=== PATIENT | male | born 1960 | race Caucasian/White ===

== ENCOUNTER 2021-11-20 04:50 | Inpatient (IN) | payer OTHER ==
[~2021-11-20] VITALS: Ht 175.3 cm; Wt 72.1 kg
[2021-11-20 15:40] VITALS: BP 140/80
[2021-11-20 16:00] VITALS: BP 140/80
[2021-11-20] MEDS ORDERED: ACETAMINOPHEN 325 MG TABLET PO PRN (18:15)
[2021-11-20] MEDS ORDERED: IPRATROPIUM BROMIDE 0.5 MG/2.5 ML NEB SOLUTION NEB PRN (18:45)
[2021-11-20] MEDS ORDERED: ALBUTEROL SULFATE 2.5 MG/0.5 ML NEB SOLUTION NEB PRN (18:45)
[2021-11-20] MEDS ORDERED: ONDANSETRON HCL 4 MG TABLET PO PRN (19:00)
[2021-11-20] MEDS ORDERED: LACTULOSE 20 GM/30 ML SOLUTION UDCUP PO PRN (19:00)
[2021-11-20] MEDS ORDERED: *NON-FORMULARY MED [ENTER DRUG, DOSE, FREQ IN COMMENTS] CLINICAL ONE (19:20)
[2021-11-20] MEDS: OXYGEN THERAPY IH SCH (20:53)
[2021-11-20] MEDS: BENZONATATE 100 MG CAPSULE PO SCH (20:54)
[2021-11-20] MEDS: CHLORHEXIDINE GLUCONATE 0.12% 15 ML UDCUP ORAL RINSE PO SCH (20:55)
[2021-11-20] MEDS: ROSUVASTATIN CALCIUM 20 MG TABLET PO SCH (20:55)
[2021-11-20] MEDS: APIXABAN 5 MG TABLET PO SCH (20:55)
[2021-11-20] MEDS: TICAGRELOR 90 MG TABLET PO SCH (20:55)
[2021-11-20] MEDS: ETHYL ALCOHOL 62% ANTISEPTIC NASAL INHALANT 0.6 ML AMPUL NASAL SCH (20:56)
[2021-11-20] MEDS ORDERED: DOCUSATE SODIUM 100 MG CAPSULE PO SCH (21:00)
[2021-11-20] MEDS ORDERED: SENNA 218 MG/5 ML LIQUID ORAL.SYG PO SCH (21:00)
[2021-11-20] MEDS: SENNA 187 MG TABLET PO SCH (21:02)
[2021-11-20] MEDS: DOCUSATE SODIUM 250 MG CAPSULE PO SCH (21:02)
[2021-11-20] MEDS: METOPROLOL TARTRATE 25 MG TABLET PO SCH (23:43)
[2021-11-21] VITALS (7 sets, daily range): BP systolic 118–140; BP diastolic 68–92
[2021-11-21] MEDS: METOPROLOL TARTRATE 25 MG TABLET PO SCH ×4 (06:21→23:09)
[2021-11-21] MEDS: PANTOPRAZOLE SODIUM 40 MG DR TABLET PO SCH (06:21)
[2021-11-21 06:47] LABS: BASOPHILS % (AUTO) 0.6 % (0.0-2.0); HEMATOCRIT 32.9 % (41-53); HEMOGLOBIN 10.9 g/dL (13.5-17.5); LYMPHOCYTES # (AUTO) 1.5 K/uL (1.0-4.8); LYMPHOCYTES % (AUTO) 20.4 % (22.0-44.0); MEAN CORPUSCULAR HEMOGLOBIN 28.3 pg (26.0-34.0); MEAN CORPUSCULAR HGB CONC 33.1 G/dL (31.0-37.0); MEAN CORPUSCULAR VOLUME 86 fL (80-100); MONOCYTES # (AUTO) 0.9 K/uL (0.1-1.0); MONOCYTES % (AUTO) 12.9 % (2.0-9.0); NEUTROPHILS # (AUTO) 4.2 K/uL (1.8-7.7); NEUTROPHILS % (AUTO) 58.1 % (40.0-70.0); PLATELET COUNT (AUTO) 435 K/uL (150-450); RED BLOOD CELL COUNT(AUTO) 3.85 MIL/uL (4.50-5.90)
[2021-11-21 07:14] LABS: ALANINE AMINOTRANSFERASE 60 U/L (12-78); ALBUMIN 3.1 g/dL (3.4-5.0); ALKALINE PHOSPHATASE 69 U/L (46-116); ANION GAP 6 mmol/L (8-16); ASPARTATE AMINOTRANSFERASE 27 U/L (15-37); BILIRUBIN,TOTAL 0.2 mg/dL (0.1-1.0); CALCIUM, TOTAL 9.4 mg/dL (8.8-10.5); CARBON DIOXIDE 33 mmol/L (22-29); CHLORIDE 102 mmol/L (98-107); GLOMERULAR FILTR. RATE CALC > 60 mL/min (>60); GLUCOSE,RANDOM 100 mg/dL (70-110); POTASSIUM 4.1 mmol/L (3.5-5.1); SODIUM SERUM 141 mmol/L (136-145); TOTAL PROTEIN, SERUM 7.1 g/dL (6.4-8.2); UREA NITROGEN, BLOOD 8 mg/dL (7-18)
[2021-11-21] MEDS: OXYGEN THERAPY IH SCH ×2 (08:00→20:43)
[2021-11-21] MEDS: CHLORHEXIDINE GLUCONATE 0.12% 15 ML UDCUP ORAL RINSE PO SCH ×2 (09:53→20:37)
[2021-11-21] MEDS: MULTIVITAMINS WITH MINERALS, THERAPEUTIC TABLET PO SCH (09:54)
[2021-11-21] MEDS: TICAGRELOR 90 MG TABLET PO SCH ×2 (09:54→20:36)
[2021-11-21] MEDS: APIXABAN 5 MG TABLET PO SCH ×2 (09:54→20:37)
[2021-11-21] MEDS: ETHYL ALCOHOL 62% ANTISEPTIC NASAL INHALANT 0.6 ML AMPUL NASAL SCH ×2 (09:54→20:36)
[2021-11-21] MEDS: BENZONATATE 100 MG CAPSULE PO SCH ×2 (09:54→20:36)
[2021-11-21] MEDS: CHOLECALCIFEROL (VIT D3) 5,000 [125 MCG] UNITS CAPSULE PO SCH (09:54)
[2021-11-21] MEDS: DOCUSATE SODIUM 250 MG CAPSULE PO SCH ×2 (09:54→20:36)
[2021-11-21] MEDS ORDERED: SODIUM CHLORIDE 0.9% 100 ML ONE (15:11)
[2021-11-21] MEDS: DEXTROSE 5% IV SCH (15:55)
[2021-11-21] MEDS: WATER IV SCH (15:55)
[2021-11-21] MEDS: ANIDULAFUNGIN IV SCH (15:55)
[2021-11-21] MEDS: ROSUVASTATIN CALCIUM 20 MG TABLET PO SCH (20:36)
[2021-11-21] MEDS: SENNA 187 MG TABLET PO SCH (20:36)
[2021-11-21] MEDS: HYDROCODONE/CHLORPHEN POLIS 10-8 MG/5 ML ORAL.SYG PO SCH (20:37)
[2021-11-21] MEDS: 0.9% SODIUM CHLORIDE 10 ML SYRINGE IVP SCH (23:09)
[2021-11-22] MEDS: PANTOPRAZOLE SODIUM 40 MG DR TABLET PO SCH (06:03)
[2021-11-22] MEDS: METOPROLOL TARTRATE 25 MG TABLET PO SCH ×4 (06:03→23:17)
[2021-11-22] MEDS: DOCUSATE SODIUM 250 MG CAPSULE PO SCH ×2 (08:53→21:56)
[2021-11-22] MEDS: CHLORHEXIDINE GLUCONATE 0.12% 15 ML UDCUP ORAL RINSE PO SCH ×2 (08:53→21:48)
[2021-11-22] MEDS: CHOLECALCIFEROL (VIT D3) 5,000 [125 MCG] UNITS CAPSULE PO SCH (08:54)
[2021-11-22] MEDS: ETHYL ALCOHOL 62% ANTISEPTIC NASAL INHALANT 0.6 ML AMPUL NASAL SCH ×2 (08:54→21:48)
[2021-11-22] MEDS: APIXABAN 5 MG TABLET PO SCH ×2 (08:54→21:48)
[2021-11-22] MEDS: TICAGRELOR 90 MG TABLET PO SCH ×2 (08:54→21:48)
[2021-11-22] MEDS: MULTIVITAMINS WITH MINERALS, THERAPEUTIC TABLET PO SCH (08:54)
[2021-11-22] MEDS: BENZONATATE 100 MG CAPSULE PO SCH ×2 (08:54→21:48)
[2021-11-22 09:00] VITALS: BP 117/79
[2021-11-22] MEDS: 0.9% SODIUM CHLORIDE 10 ML SYRINGE IVP SCH ×3 (09:03→23:17)
[2021-11-22] MEDS: OXYGEN THERAPY IH SCH ×2 (09:10→21:56)
[2021-11-22 12:30] VITALS: BP 131/80
[2021-11-22 15:30] VITALS: BP 129/87
[2021-11-22] MEDS: WATER IV SCH (16:40)
[2021-11-22] MEDS: ANIDULAFUNGIN IV SCH (16:40)
[2021-11-22] MEDS: DEXTROSE 5% IV SCH (16:40)
[2021-11-22 18:55] VITALS: BP 132/68
[2021-11-22] MEDS: ROSUVASTATIN CALCIUM 20 MG TABLET PO SCH (21:48)
[2021-11-22] MEDS: SENNA 187 MG TABLET PO SCH (21:48)
[2021-11-22] MEDS: HYDROCODONE/CHLORPHEN POLIS 10-8 MG/5 ML ORAL.SYG PO SCH (22:33)
[2021-11-23] VITALS: BP 130/94
[2021-11-23 06:00] VITALS: BP 117/81
[2021-11-23] MEDS: PANTOPRAZOLE SODIUM 40 MG DR TABLET PO SCH (06:07)
[2021-11-23] MEDS: METOPROLOL TARTRATE 25 MG TABLET PO SCH ×3 (06:07→22:09)
[2021-11-23 08:10] VITALS: BP 126/74
[2021-11-23] MEDS: OXYGEN THERAPY IH SCH ×2 (08:34→22:24)
[2021-11-23] MEDS: APIXABAN 5 MG TABLET PO SCH ×2 (08:35→22:09)
[2021-11-23] MEDS: BENZONATATE 100 MG CAPSULE PO SCH ×3 (08:35→22:09)
[2021-11-23] MEDS: CHOLECALCIFEROL (VIT D3) 5,000 [125 MCG] UNITS CAPSULE PO SCH (08:35)
[2021-11-23] MEDS: 0.9% SODIUM CHLORIDE 10 ML SYRINGE IVP SCH ×2 (08:35→16:46)
[2021-11-23] MEDS: MULTIVITAMINS WITH MINERALS, THERAPEUTIC TABLET PO SCH (08:35)
[2021-11-23] MEDS: DOCUSATE SODIUM 250 MG CAPSULE PO SCH ×2 (08:35→22:09)
[2021-11-23] MEDS: ETHYL ALCOHOL 62% ANTISEPTIC NASAL INHALANT 0.6 ML AMPUL NASAL SCH ×2 (08:36→22:09)
[2021-11-23] MEDS: CHLORHEXIDINE GLUCONATE 0.12% 15 ML UDCUP ORAL RINSE PO SCH ×2 (08:36→22:14)
[2021-11-23] MEDS: TICAGRELOR 90 MG TABLET PO SCH ×2 (08:36→22:13)
[2021-11-23 15:30] VITALS: BP 112/76
[2021-11-23] MEDS: DEXTROSE 5% IV SCH (16:45)
[2021-11-23] MEDS: ANIDULAFUNGIN IV SCH (16:45)
[2021-11-23] MEDS: WATER IV SCH (16:45)
[2021-11-23] MEDS: SENNA 187 MG TABLET PO SCH (22:09)
[2021-11-23] MEDS: HYDROCODONE/CHLORPHEN POLIS 10-8 MG/5 ML ORAL.SYG PO SCH ×2 (22:10→23:48)
[2021-11-23] MEDS: ROSUVASTATIN CALCIUM 20 MG TABLET PO SCH (22:12)
[2021-11-23 22:16] VITALS: BP 137/74
[2021-11-24 00:01] VITALS: BP 120/92
[2021-11-24] MEDS: 0.9% SODIUM CHLORIDE 10 ML SYRINGE IVP SCH ×4 (00:45→22:53)
[2021-11-24] MEDS: METOPROLOL TARTRATE 25 MG TABLET PO SCH ×5 (06:26→22:53)
[2021-11-24] MEDS: PANTOPRAZOLE SODIUM 40 MG DR TABLET PO SCH (06:27)
[2021-11-24 08:11] VITALS: BP 129/82
[2021-11-24] MEDS: BENZONATATE 100 MG CAPSULE PO SCH ×2 (09:00→21:00)
[2021-11-24] MEDS: CHOLECALCIFEROL (VIT D3) 5,000 [125 MCG] UNITS CAPSULE PO SCH (09:24)
[2021-11-24] MEDS: MULTIVITAMINS WITH MINERALS, THERAPEUTIC TABLET PO SCH (09:24)
[2021-11-24] MEDS: CHLORHEXIDINE GLUCONATE 0.12% 15 ML UDCUP ORAL RINSE PO SCH ×2 (09:24→21:49)
[2021-11-24] MEDS: APIXABAN 5 MG TABLET PO SCH ×2 (09:24→21:57)
[2021-11-24] MEDS: DOCUSATE SODIUM 250 MG CAPSULE PO SCH ×2 (09:24→21:58)
[2021-11-24] MEDS: ETHYL ALCOHOL 62% ANTISEPTIC NASAL INHALANT 0.6 ML AMPUL NASAL SCH ×2 (09:25→21:48)
[2021-11-24] MEDS: TICAGRELOR 90 MG TABLET PO SCH ×2 (09:25→21:47)
[2021-11-24] MEDS: OXYGEN THERAPY IH SCH ×2 (09:32→21:48)
[2021-11-24 12:35] VITALS: BP 128/81
[2021-11-24] MEDS: DEXTROSE 5% IV SCH (15:50)
[2021-11-24] MEDS: WATER IV SCH (15:50)
[2021-11-24] MEDS: MAGNESIUM HYDROXIDE SUSPENSION 30 ML UDCUP PO SCH (15:50)
[2021-11-24] MEDS: ANIDULAFUNGIN IV SCH (15:50)
[2021-11-24 16:00] VITALS: BP 140/84
[2021-11-24] MEDS ORDERED: DOCUSATE SODIUM 283 MG/5 ML MINI-ENEMA PR PRN (17:00)
[2021-11-24 17:27] VITALS: BP 124/70
[2021-11-24] MEDS: ROSUVASTATIN CALCIUM 20 MG TABLET PO SCH (21:48)
[2021-11-24] MEDS: SENNA 187 MG TABLET PO SCH (21:58)
[2021-11-24] MEDS: HYDROCODONE/CHLORPHEN POLIS 10-8 MG/5 ML ORAL.SYG PO SCH (22:52)
[2021-11-24 23:00] VITALS: BP 134/91
[2021-11-25 05:18] VITALS: BP 116/73
[2021-11-25] MEDS: METOPROLOL TARTRATE 25 MG TABLET PO SCH ×4 (05:18→23:12)
[2021-11-25] MEDS: PANTOPRAZOLE SODIUM 40 MG DR TABLET PO SCH (05:18)
[2021-11-25] MEDS ORDERED: [UNRECOGNIZED DRUG - CODE] IV (06:59)
[2021-11-25] MEDS ORDERED: APIX5TAB PO (06:59)
[2021-11-25] MEDS ORDERED: CHOL500062 PO (06:59)
[2021-11-25] MEDS: CHLORHEXIDINE GLUCONATE 0.12% 15 ML UDCUP ORAL RINSE PO SCH ×2 (08:47→20:29)
[2021-11-25] MEDS: ETHYL ALCOHOL 62% ANTISEPTIC NASAL INHALANT 0.6 ML AMPUL NASAL SCH ×2 (08:47→20:30)
[2021-11-25] MEDS: BENZONATATE 100 MG CAPSULE PO SCH ×2 (08:47→20:30)
[2021-11-25] MEDS: CHOLECALCIFEROL (VIT D3) 5,000 [125 MCG] UNITS CAPSULE PO SCH (08:47)
[2021-11-25] MEDS: 0.9% SODIUM CHLORIDE 10 ML SYRINGE IVP SCH ×3 (08:48→23:22)
[2021-11-25] MEDS: TICAGRELOR 90 MG TABLET PO SCH ×2 (08:48→20:29)
[2021-11-25] MEDS: DOCUSATE SODIUM 250 MG CAPSULE PO SCH ×2 (08:48→20:30)
[2021-11-25] MEDS: OXYGEN THERAPY IH SCH ×2 (08:48→20:31)
[2021-11-25] MEDS: APIXABAN 5 MG TABLET PO SCH ×2 (08:48→20:30)
[2021-11-25] MEDS: MULTIVITAMINS WITH MINERALS, THERAPEUTIC TABLET PO SCH (08:48)
[2021-11-25 10:03] VITALS: BP 120/75
[2021-11-25] MEDS ORDERED: SODIUM CHLORIDE 0.9% 100 ML ONE (15:35)
[2021-11-25] MEDS: WATER IV SCH (15:52)
[2021-11-25] MEDS: ANIDULAFUNGIN IV SCH (15:52)
[2021-11-25] MEDS: DEXTROSE 5% IV SCH (15:52)
[2021-11-25 16:00] VITALS: BP 123/65
[2021-11-25 17:26] VITALS: BP 142/82
[2021-11-25] MEDS: ROSUVASTATIN CALCIUM 20 MG TABLET PO SCH (20:29)
[2021-11-25] MEDS: SENNA 187 MG TABLET PO SCH (20:30)
[2021-11-25 23:12] VITALS: BP 156/88
[2021-11-25] MEDS: HYDROCODONE/CHLORPHEN POLIS 10-8 MG/5 ML ORAL.SYG PO SCH (23:12)
[2021-11-26] MEDS ORDERED: MULT-1133 PO (03:27)
[2021-11-26] MEDS ORDERED: DOCU-350 PO (03:27)
[2021-11-26] MEDS ORDERED: ROSU20TA73 PO (03:27)
[2021-11-26] MEDS ORDERED: PANT-31 PO (03:27)
[2021-11-26] MEDS ORDERED: TICA90TA PO (03:27)
[2021-11-26] MEDS ORDERED: METO25 PO (03:27)
[2021-11-26] MEDS ORDERED: SENN8.6T90 PO ×2 (03:27)
[2021-11-26] MEDS: METOPROLOL TARTRATE 25 MG TABLET PO SCH ×4 (06:11→22:58)
[2021-11-26] MEDS: PANTOPRAZOLE SODIUM 40 MG DR TABLET PO SCH (06:11)
[2021-11-26 06:15] VITALS: BP 117/76
[2021-11-26] MEDS: CHLORHEXIDINE GLUCONATE 0.12% 15 ML UDCUP ORAL RINSE PO SCH ×2 (08:43→21:27)
[2021-11-26] MEDS: 0.9% SODIUM CHLORIDE 10 ML SYRINGE IVP SCH ×3 (08:43→22:58)
[2021-11-26] MEDS: MAGNESIUM HYDROXIDE SUSPENSION 30 ML UDCUP PO SCH (08:43)
[2021-11-26] MEDS: OXYGEN THERAPY IH SCH ×2 (08:43→21:26)
[2021-11-26] MEDS: DOCUSATE SODIUM 250 MG CAPSULE PO SCH ×2 (08:44→21:41)
[2021-11-26] MEDS: ETHYL ALCOHOL 62% ANTISEPTIC NASAL INHALANT 0.6 ML AMPUL NASAL SCH ×2 (08:44→21:26)
[2021-11-26] MEDS: CHOLECALCIFEROL (VIT D3) 5,000 [125 MCG] UNITS CAPSULE PO SCH (08:44)
[2021-11-26] MEDS: APIXABAN 5 MG TABLET PO SCH ×2 (08:44→21:27)
[2021-11-26] MEDS: TICAGRELOR 90 MG TABLET PO SCH ×2 (08:44→21:27)
[2021-11-26] MEDS: BENZONATATE 100 MG CAPSULE PO SCH ×2 (08:44→21:00)
[2021-11-26] MEDS: MULTIVITAMINS WITH MINERALS, THERAPEUTIC TABLET PO SCH (08:44)
[2021-11-26 08:49] LABS: BASOPHILS % (AUTO) 0.7 % (0.0-2.0); EOSINOPHILS % (AUTO) 11.6 % (1.0-6.0); HEMATOCRIT 32.6 % (41-53); HEMOGLOBIN 10.9 g/dL (13.5-17.5); LYMPHOCYTES # (AUTO) 1.4 K/uL (1.0-4.8); LYMPHOCYTES % (AUTO) 22.8 % (22.0-44.0); MEAN CORPUSCULAR HEMOGLOBIN 28.7 pg (26.0-34.0); MEAN CORPUSCULAR HGB CONC 33.5 G/dL (31.0-37.0); MEAN CORPUSCULAR VOLUME 86 fL (80-100); MONOCYTES # (AUTO) 0.7 K/uL (0.1-1.0); MONOCYTES % (AUTO) 11.6 % (2.0-9.0); NEUTROPHILS # (AUTO) 3.3 K/uL (1.8-7.7); NEUTROPHILS % (AUTO) 53.3 % (40.0-70.0); PLATELET COUNT (AUTO) 363 K/uL (150-450); RED BLOOD CELL COUNT(AUTO) 3.81 MIL/uL (4.50-5.90); RED CELL DISTRIBUTION WIDTH 15.2 % (11.5-14.5)
[2021-11-26 08:56] LABS: ANION GAP 3 mmol/L (8-16); CALCIUM, TOTAL 9.4 mg/dL (8.8-10.5); CARBON DIOXIDE 33 mmol/L (22-29); CHLORIDE 102 mmol/L (98-107); CREATININE 0.67 mg/dL (0.60-1.30); GLOMERULAR FILTR. RATE CALC > 60 mL/min (>60); GLUCOSE,RANDOM 140 mg/dL (70-110); POTASSIUM 4.2 mmol/L (3.5-5.1); SODIUM SERUM 138 mmol/L (136-145); UREA NITROGEN, BLOOD 10 mg/dL (7-18)
[2021-11-26 09:51] VITALS: BP 119/75
[2021-11-26] MEDS: DEXTROSE 5% IV SCH (16:07)
[2021-11-26] MEDS: WATER IV SCH (16:07)
[2021-11-26] MEDS: ANIDULAFUNGIN IV SCH (16:07)
[2021-11-26 16:24] VITALS: BP 120/75
[2021-11-26] MEDS: SENNA 187 MG TABLET PO SCH (21:27)
[2021-11-26] MEDS: ROSUVASTATIN CALCIUM 20 MG TABLET PO SCH (21:27)
[2021-11-26] MEDS: MUPIROCIN CALCIUM 2% 22 GM OINTMENT NASAL SCH (21:29)
[2021-11-26] MEDS: HYDROCODONE/CHLORPHEN POLIS 10-8 MG/5 ML ORAL.SYG PO SCH (22:58)
[2021-11-26 23:13] VITALS: BP 141/82
[2021-11-27 06:10] VITALS: BP 116/73
[2021-11-27] MEDS: METOPROLOL TARTRATE 25 MG TABLET PO SCH ×4 (06:10→23:23)
[2021-11-27] MEDS: PANTOPRAZOLE SODIUM 40 MG DR TABLET PO SCH (06:10)
[2021-11-27] MEDS: 0.9% SODIUM CHLORIDE 10 ML SYRINGE IVP SCH ×3 (08:59→23:23)
[2021-11-27] MEDS: ETHYL ALCOHOL 62% ANTISEPTIC NASAL INHALANT 0.6 ML AMPUL NASAL SCH ×2 (08:59→20:51)
[2021-11-27] MEDS: MUPIROCIN CALCIUM 2% 22 GM OINTMENT NASAL SCH ×2 (08:59→20:51)
[2021-11-27] MEDS: CHOLECALCIFEROL (VIT D3) 5,000 [125 MCG] UNITS CAPSULE PO SCH (08:59)
[2021-11-27] MEDS: OXYGEN THERAPY IH SCH ×2 (08:59→20:50)
[2021-11-27] MEDS: TICAGRELOR 90 MG TABLET PO SCH ×2 (09:00→20:53)
[2021-11-27] MEDS: MULTIVITAMINS WITH MINERALS, THERAPEUTIC TABLET PO SCH (09:00)
[2021-11-27] MEDS: DOCUSATE SODIUM 250 MG CAPSULE PO SCH ×2 (09:00→20:52)
[2021-11-27] MEDS: CHLORHEXIDINE GLUCONATE 0.12% 15 ML UDCUP ORAL RINSE PO SCH ×2 (09:00→20:52)
[2021-11-27] MEDS: APIXABAN 5 MG TABLET PO SCH ×2 (09:00→20:52)
[2021-11-27] MEDS: BENZONATATE 100 MG CAPSULE PO SCH ×2 (09:00→20:55)
[2021-11-27 10:00] VITALS: BP 110/79
[2021-11-27 12:50] VITALS: BP 115/74
[2021-11-27 15:45] VITALS: BP 128/76
[2021-11-27] MEDS: WATER IV SCH (16:41)
[2021-11-27] MEDS: ANIDULAFUNGIN IV SCH (16:41)
[2021-11-27] MEDS: DEXTROSE 5% IV SCH (16:41)
[2021-11-27 18:26] VITALS: BP 130/84
[2021-11-27] MEDS: ROSUVASTATIN CALCIUM 20 MG TABLET PO SCH (20:52)
[2021-11-27] MEDS: SENNA 187 MG TABLET PO SCH (20:52)
[2021-11-27] MEDS: MUPIROCIN CALCIUM 2% 22 GM OINTMENT TP SCH (20:53)
[2021-11-27] MEDS: HYDROCODONE/CHLORPHEN POLIS 10-8 MG/5 ML ORAL.SYG PO SCH (23:23)
[2021-11-28] VITALS: BP 136/77
[2021-11-28 06:15] VITALS: BP 116/72
[2021-11-28] MEDS: PANTOPRAZOLE SODIUM 40 MG DR TABLET PO SCH (06:16)
[2021-11-28] MEDS: METOPROLOL TARTRATE 25 MG TABLET PO SCH ×4 (06:16→23:37)
[2021-11-28] MEDS: OXYGEN THERAPY IH SCH ×2 (08:18→20:28)
[2021-11-28] MEDS: 0.9% SODIUM CHLORIDE 10 ML SYRINGE IVP SCH ×3 (08:18→23:37)
[2021-11-28] MEDS: ETHYL ALCOHOL 62% ANTISEPTIC NASAL INHALANT 0.6 ML AMPUL NASAL SCH ×2 (08:18→20:29)
[2021-11-28] MEDS: MUPIROCIN CALCIUM 2% 22 GM OINTMENT NASAL SCH ×2 (08:19→20:30)
[2021-11-28] MEDS: CHLORHEXIDINE GLUCONATE 0.12% 15 ML UDCUP ORAL RINSE PO SCH ×2 (08:19→20:28)
[2021-11-28] MEDS: MAGNESIUM HYDROXIDE SUSPENSION 30 ML UDCUP PO SCH (08:19)
[2021-11-28] MEDS: DOCUSATE SODIUM 250 MG CAPSULE PO SCH ×2 (08:20→20:30)
[2021-11-28] MEDS: MUPIROCIN CALCIUM 2% 22 GM OINTMENT TP SCH ×2 (08:20→20:30)
[2021-11-28] MEDS: CHOLECALCIFEROL (VIT D3) 5,000 [125 MCG] UNITS CAPSULE PO SCH (08:20)
[2021-11-28] MEDS: MULTIVITAMINS WITH MINERALS, THERAPEUTIC TABLET PO SCH (08:20)
[2021-11-28] MEDS: TICAGRELOR 90 MG TABLET PO SCH ×2 (08:20→20:29)
[2021-11-28] MEDS: APIXABAN 5 MG TABLET PO SCH ×2 (08:21→20:29)
[2021-11-28] MEDS: BENZONATATE 100 MG CAPSULE PO SCH ×2 (08:21→20:30)
[2021-11-28 10:00] VITALS: BP 128/81
[2021-11-28 15:09] VITALS: BP 118/75
[2021-11-28] MEDS: WATER IV SCH (15:57)
[2021-11-28] MEDS: DEXTROSE 5% IV SCH (15:57)
[2021-11-28] MEDS: ANIDULAFUNGIN IV SCH (15:57)
[2021-11-28 17:49] VITALS: BP 126/72
[2021-11-28] MEDS: ROSUVASTATIN CALCIUM 20 MG TABLET PO SCH (20:29)
[2021-11-28] MEDS: SENNA 187 MG TABLET PO SCH (20:30)
[2021-11-28] MEDS: HYDROCODONE/CHLORPHEN POLIS 10-8 MG/5 ML ORAL.SYG PO SCH (23:36)
[2021-11-29] VITALS: BP 135/76
[2021-11-29 06:25] VITALS: BP 117/77
[2021-11-29] MEDS: METOPROLOL TARTRATE 25 MG TABLET PO SCH ×4 (06:28→23:21)
[2021-11-29] MEDS: PANTOPRAZOLE SODIUM 40 MG DR TABLET PO SCH (06:28)
[2021-11-29] MEDS: OXYGEN THERAPY IH SCH ×2 (08:41→20:45)
[2021-11-29] MEDS: 0.9% SODIUM CHLORIDE 10 ML SYRINGE IVP SCH ×3 (08:41→23:21)
[2021-11-29] MEDS: TICAGRELOR 90 MG TABLET PO SCH ×2 (08:42→20:46)
[2021-11-29] MEDS: MULTIVITAMINS WITH MINERALS, THERAPEUTIC TABLET PO SCH (08:42)
[2021-11-29] MEDS: MUPIROCIN CALCIUM 2% 22 GM OINTMENT NASAL SCH ×2 (08:42→20:49)
[2021-11-29] MEDS: DOCUSATE SODIUM 250 MG CAPSULE PO SCH ×2 (08:42→20:46)
[2021-11-29] MEDS: CHOLECALCIFEROL (VIT D3) 5,000 [125 MCG] UNITS CAPSULE PO SCH (08:42)
[2021-11-29] MEDS: APIXABAN 5 MG TABLET PO SCH ×2 (08:42→20:46)
[2021-11-29] MEDS: ETHYL ALCOHOL 62% ANTISEPTIC NASAL INHALANT 0.6 ML AMPUL NASAL SCH ×2 (08:42→20:46)
[2021-11-29] MEDS: BENZONATATE 100 MG CAPSULE PO SCH ×2 (08:43→21:00)
[2021-11-29] MEDS: CHLORHEXIDINE GLUCONATE 0.12% 15 ML UDCUP ORAL RINSE PO SCH ×2 (08:43→20:45)
[2021-11-29] MEDS: MUPIROCIN CALCIUM 2% 22 GM OINTMENT TP SCH ×2 (08:43→20:49)
[2021-11-29 10:39] VITALS: BP 121/73
[2021-11-29] MEDS: WATER IV SCH (15:17)
[2021-11-29] MEDS: ANIDULAFUNGIN IV SCH (15:17)
[2021-11-29] MEDS: DEXTROSE 5% IV SCH (15:17)
[2021-11-29 17:23] VITALS: BP 129/87
[2021-11-29] MEDS: SENNA 187 MG TABLET PO SCH (20:46)
[2021-11-29] MEDS: ROSUVASTATIN CALCIUM 20 MG TABLET PO SCH (20:46)
[2021-11-29] MEDS: HYDROCODONE/CHLORPHEN POLIS 10-8 MG/5 ML ORAL.SYG PO SCH (23:20)
[2021-11-30 03:44] VITALS: BP 133/87
[2021-11-30] MEDS: PANTOPRAZOLE SODIUM 40 MG DR TABLET PO SCH (06:29)
[2021-11-30] MEDS: METOPROLOL TARTRATE 25 MG TABLET PO SCH ×4 (06:29→23:43)
[2021-11-30] MEDS: MAGNESIUM HYDROXIDE SUSPENSION 30 ML UDCUP PO SCH (08:07)
[2021-11-30] MEDS: 0.9% SODIUM CHLORIDE 10 ML SYRINGE IVP SCH ×3 (08:07→23:51)
[2021-11-30] MEDS: CHLORHEXIDINE GLUCONATE 0.12% 15 ML UDCUP ORAL RINSE PO SCH ×2 (08:07→21:01)
[2021-11-30] MEDS: CHOLECALCIFEROL (VIT D3) 5,000 [125 MCG] UNITS CAPSULE PO SCH (08:07)
[2021-11-30] MEDS: OXYGEN THERAPY IH SCH ×2 (08:07→21:02)
[2021-11-30] MEDS: ETHYL ALCOHOL 62% ANTISEPTIC NASAL INHALANT 0.6 ML AMPUL NASAL SCH ×2 (08:07→21:02)
[2021-11-30] MEDS: MULTIVITAMINS WITH MINERALS, THERAPEUTIC TABLET PO SCH (08:08)
[2021-11-30] MEDS: DOCUSATE SODIUM 250 MG CAPSULE PO SCH ×2 (08:08→21:01)
[2021-11-30] MEDS: TICAGRELOR 90 MG TABLET PO SCH ×2 (08:08→21:01)
[2021-11-30] MEDS: APIXABAN 5 MG TABLET PO SCH ×2 (08:08→21:03)
[2021-11-30] MEDS: BENZONATATE 100 MG CAPSULE PO SCH (08:09)
[2021-11-30] MEDS: MUPIROCIN CALCIUM 2% 22 GM OINTMENT NASAL SCH ×2 (08:09→21:02)
[2021-11-30] MEDS: MUPIROCIN CALCIUM 2% 22 GM OINTMENT TP SCH ×2 (08:09→21:02)
[2021-11-30 10:02] VITALS: BP 129/85
[2021-11-30 16:05] VITALS: BP 130/82
[2021-11-30] MEDS: DEXTROSE 5% IV SCH (16:14)
[2021-11-30] MEDS: WATER IV SCH (16:14)
[2021-11-30] MEDS: ANIDULAFUNGIN IV SCH (16:14)
[2021-11-30 17:30] VITALS: BP 124/78
[2021-11-30] MEDS ORDERED: BISACODYL 10 MG RECTAL RECTAL SUPPOSITORY PR PRN (19:15)
[2021-11-30] MEDS: SENNA 187 MG TABLET PO SCH (21:01)
[2021-11-30] MEDS: ROSUVASTATIN CALCIUM 20 MG TABLET PO SCH (21:02)
[2021-11-30] MEDS: HYDROCODONE/CHLORPHEN POLIS 10-8 MG/5 ML ORAL.SYG PO SCH (23:43)
[2021-12-01] VITALS: BP 141/90
[2021-12-01 06:00] VITALS: BP 116/75
[2021-12-01] MEDS: PANTOPRAZOLE SODIUM 40 MG DR TABLET PO SCH (06:16)
[2021-12-01] MEDS: METOPROLOL TARTRATE 25 MG TABLET PO SCH ×4 (06:16→23:12)
[2021-12-01] MEDS: 0.9% SODIUM CHLORIDE 10 ML SYRINGE IVP SCH ×3 (08:11→23:07)
[2021-12-01] MEDS: OXYGEN THERAPY IH SCH ×2 (08:11→21:20)
[2021-12-01] MEDS: MULTIVITAMINS WITH MINERALS, THERAPEUTIC TABLET PO SCH (08:12)
[2021-12-01] MEDS: DOCUSATE SODIUM 250 MG CAPSULE PO SCH ×2 (08:12→21:19)
[2021-12-01] MEDS: APIXABAN 5 MG TABLET PO SCH ×2 (08:12→21:19)
[2021-12-01] MEDS: CHOLECALCIFEROL (VIT D3) 5,000 [125 MCG] UNITS CAPSULE PO SCH (08:12)
[2021-12-01] MEDS: CHLORHEXIDINE GLUCONATE 0.12% 15 ML UDCUP ORAL RINSE PO SCH ×2 (08:12→21:19)
[2021-12-01] MEDS: TICAGRELOR 90 MG TABLET PO SCH ×2 (08:12→21:19)
[2021-12-01] MEDS: MUPIROCIN CALCIUM 2% 22 GM OINTMENT NASAL SCH (08:13)
[2021-12-01] MEDS: ETHYL ALCOHOL 62% ANTISEPTIC NASAL INHALANT 0.6 ML AMPUL NASAL SCH ×2 (08:13→21:20)
[2021-12-01] MEDS: MUPIROCIN CALCIUM 2% 22 GM OINTMENT TP SCH ×2 (08:13→21:19)
[2021-12-01 10:54] VITALS: BP 123/73
[2021-12-01] MEDS: POLYETHYLENE GLYCOL 3350 17 GM PACKET PO SCH (12:38)
[2021-12-01 15:39] VITALS: BP 121/78
[2021-12-01] MEDS: WATER IV SCH (16:37)
[2021-12-01] MEDS: DEXTROSE 5% IV SCH (16:37)
[2021-12-01] MEDS: ANIDULAFUNGIN IV SCH (16:37)
[2021-12-01 18:30] VITALS: BP 134/80
[2021-12-01] MEDS: ROSUVASTATIN CALCIUM 20 MG TABLET PO SCH (21:19)
[2021-12-01] MEDS: SENNA 187 MG TABLET PO SCH (21:19)
[2021-12-01 23:00] VITALS: BP 134/90
[2021-12-01] MEDS: HYDROCODONE/CHLORPHEN POLIS 10-8 MG/5 ML ORAL.SYG PO SCH (23:10)
[2021-12-02 05:30] VITALS: BP 116/69
[2021-12-02] MEDS: PANTOPRAZOLE SODIUM 40 MG DR TABLET PO SCH (05:30)
[2021-12-02] MEDS: METOPROLOL TARTRATE 25 MG TABLET PO SCH ×4 (05:30→23:24)
[2021-12-02] MEDS: 0.9% SODIUM CHLORIDE 10 ML SYRINGE IVP SCH ×3 (09:49→23:23)
[2021-12-02] MEDS: OXYGEN THERAPY IH SCH ×2 (09:49→20:17)
[2021-12-02] MEDS: ETHYL ALCOHOL 62% ANTISEPTIC NASAL INHALANT 0.6 ML AMPUL NASAL SCH ×2 (09:49→20:18)
[2021-12-02] MEDS: MAGNESIUM HYDROXIDE SUSPENSION 30 ML UDCUP PO SCH (09:50)
[2021-12-02] MEDS: POLYETHYLENE GLYCOL 3350 17 GM PACKET PO SCH (09:50)
[2021-12-02] MEDS: GuaiFENesin/CODEINE [SUGAR FREE] 200-20MG/10 ML SYRUP UDCUP PO PRN (09:50)
[2021-12-02] MEDS: MULTIVITAMINS WITH MINERALS, THERAPEUTIC TABLET PO SCH (09:51)
[2021-12-02] MEDS: TICAGRELOR 90 MG TABLET PO SCH ×2 (09:51→20:18)
[2021-12-02] MEDS: CHLORHEXIDINE GLUCONATE 0.12% 15 ML UDCUP ORAL RINSE PO SCH ×2 (09:51→20:18)
[2021-12-02] MEDS: DOCUSATE SODIUM 250 MG CAPSULE PO SCH ×2 (09:51→20:18)
[2021-12-02] MEDS: CHOLECALCIFEROL (VIT D3) 5,000 [125 MCG] UNITS CAPSULE PO SCH (09:51)
[2021-12-02] MEDS: APIXABAN 5 MG TABLET PO SCH ×2 (09:51→20:19)
[2021-12-02] MEDS: MUPIROCIN CALCIUM 2% 22 GM OINTMENT TP SCH ×2 (09:52→20:20)
[2021-12-02 11:34] VITALS: BP 136/87
[2021-12-02] MEDS: DEXTROSE 5% IV SCH (16:49)
[2021-12-02] MEDS: WATER IV SCH (16:49)
[2021-12-02] MEDS: ANIDULAFUNGIN IV SCH (16:49)
[2021-12-02 17:41] VITALS: BP 114/73
[2021-12-02] MEDS: ROSUVASTATIN CALCIUM 20 MG TABLET PO SCH (20:18)
[2021-12-02] MEDS: SENNA 187 MG TABLET PO SCH (20:18)
[2021-12-02 23:15] VITALS: BP 134/85
[2021-12-02] MEDS: HYDROCODONE/CHLORPHEN POLIS 10-8 MG/5 ML ORAL.SYG PO SCH (23:23)
[2021-12-03 06:05] VITALS: BP 118/74
[2021-12-03] MEDS: PANTOPRAZOLE SODIUM 40 MG DR TABLET PO SCH (06:08)
[2021-12-03] MEDS: METOPROLOL TARTRATE 25 MG TABLET PO SCH ×4 (06:08→23:06)
[2021-12-03] MEDS: ETHYL ALCOHOL 62% ANTISEPTIC NASAL INHALANT 0.6 ML AMPUL NASAL SCH ×2 (07:56→20:13)
[2021-12-03] MEDS: MULTIVITAMINS WITH MINERALS, THERAPEUTIC TABLET PO SCH (07:56)
[2021-12-03] MEDS: APIXABAN 5 MG TABLET PO SCH ×2 (07:56→20:13)
[2021-12-03] MEDS: TICAGRELOR 90 MG TABLET PO SCH ×2 (07:56→20:13)
[2021-12-03] MEDS: CHLORHEXIDINE GLUCONATE 0.12% 15 ML UDCUP ORAL RINSE PO SCH ×2 (07:56→20:13)
[2021-12-03] MEDS: CHOLECALCIFEROL (VIT D3) 5,000 [125 MCG] UNITS CAPSULE PO SCH (07:56)
[2021-12-03] MEDS: DOCUSATE SODIUM 250 MG CAPSULE PO SCH ×2 (07:56→20:38)
[2021-12-03] MEDS: MUPIROCIN CALCIUM 2% 22 GM OINTMENT TP SCH ×2 (07:57→20:14)
[2021-12-03] MEDS: 0.9% SODIUM CHLORIDE 10 ML SYRINGE IVP SCH ×3 (07:57→23:06)
[2021-12-03] MEDS: OXYGEN THERAPY IH SCH ×2 (07:57→20:13)
[2021-12-03] MEDS: POLYETHYLENE GLYCOL 3350 17 GM PACKET PO SCH (07:59)
[2021-12-03 08:18] VITALS: BP 119/72
[2021-12-03 11:30] VITALS: BP 124/89
[2021-12-03 13:13] LABS: COVID AG,FIA SOURCE NASAL SWAB
[2021-12-03] MEDS: ANIDULAFUNGIN IV SCH (15:19)
[2021-12-03] MEDS: DEXTROSE 5% IV SCH (15:19)
[2021-12-03] MEDS: WATER IV SCH (15:19)
[2021-12-03 15:40] VITALS: BP 113/72
[2021-12-03 17:30] VITALS: BP 128/82
[2021-12-03] MEDS: ROSUVASTATIN CALCIUM 20 MG TABLET PO SCH (20:13)
[2021-12-03] MEDS: SENNA 187 MG TABLET PO SCH (20:13)
[2021-12-03] MEDS ORDERED: MOM30 PO (21:28)
[2021-12-03] MEDS ORDERED: POLY17PO47 PO (21:28)
[2021-12-03] MEDS ORDERED: HYDR473S62 PO (21:28)
[2021-12-03] MEDS: HYDROCODONE/CHLORPHEN POLIS 10-8 MG/5 ML ORAL.SYG PO SCH (22:26)
[2021-12-03 23:06] VITALS: BP 129/84
[2021-12-04 06:03] VITALS: BP 117/78
[2021-12-04] MEDS: METOPROLOL TARTRATE 25 MG TABLET PO SCH ×4 (06:03→23:21)
[2021-12-04] MEDS: PANTOPRAZOLE SODIUM 40 MG DR TABLET PO SCH (06:03)
[2021-12-04] MEDS: CHLORHEXIDINE GLUCONATE 0.12% 15 ML UDCUP ORAL RINSE PO SCH ×2 (08:32→20:33)
[2021-12-04] MEDS: MAGNESIUM HYDROXIDE SUSPENSION 30 ML UDCUP PO SCH (08:32)
[2021-12-04] MEDS: ETHYL ALCOHOL 62% ANTISEPTIC NASAL INHALANT 0.6 ML AMPUL NASAL SCH ×2 (08:32→20:34)
[2021-12-04] MEDS: APIXABAN 5 MG TABLET PO SCH ×2 (08:32→20:34)
[2021-12-04] MEDS: TICAGRELOR 90 MG TABLET PO SCH ×2 (08:32→20:34)
[2021-12-04] MEDS: 0.9% SODIUM CHLORIDE 10 ML SYRINGE IVP SCH ×3 (08:32→23:15)
[2021-12-04] MEDS: DOCUSATE SODIUM 250 MG CAPSULE PO SCH ×2 (08:32→20:34)
[2021-12-04] MEDS: MULTIVITAMINS WITH MINERALS, THERAPEUTIC TABLET PO SCH (08:32)
[2021-12-04] MEDS: CHOLECALCIFEROL (VIT D3) 5,000 [125 MCG] UNITS CAPSULE PO SCH (08:32)
[2021-12-04] MEDS: OXYGEN THERAPY IH SCH ×2 (08:33→20:33)
[2021-12-04] MEDS: POLYETHYLENE GLYCOL 3350 17 GM PACKET PO SCH (08:33)
[2021-12-04] MEDS: MUPIROCIN CALCIUM 2% 22 GM OINTMENT TP SCH (08:33)
[2021-12-04 10:24] VITALS: BP 106/66
[2021-12-04] MEDS: ANIDULAFUNGIN IV SCH (15:49)
[2021-12-04] MEDS: DEXTROSE 5% IV SCH (15:49)
[2021-12-04] MEDS: WATER IV SCH (15:49)
[2021-12-04] MEDS ORDERED: SODIUM CHLORIDE 0.9% 100 ML ONE (15:54)
[2021-12-04 16:32] VITALS: BP 127/74
[2021-12-04 18:16] VITALS: BP 125/82
[2021-12-04] MEDS: SENNA 187 MG TABLET PO SCH (20:34)
[2021-12-04] MEDS: ROSUVASTATIN CALCIUM 20 MG TABLET PO SCH (20:34)
[2021-12-04] MEDS: HYDROCODONE/CHLORPHEN POLIS 10-8 MG/5 ML ORAL.SYG PO SCH (22:44)
[2021-12-05] VITALS: BP 125/82
[2021-12-05] MEDS: METOPROLOL TARTRATE 25 MG TABLET PO SCH ×4 (05:56→23:14)
[2021-12-05 06:00] VITALS: BP 118/78
[2021-12-05] MEDS: PANTOPRAZOLE SODIUM 40 MG DR TABLET PO SCH (06:05)
[2021-12-05] MEDS: OXYGEN THERAPY IH SCH ×2 (07:57→20:55)
[2021-12-05] MEDS: APIXABAN 5 MG TABLET PO SCH ×2 (07:58→20:59)
[2021-12-05] MEDS: POLYETHYLENE GLYCOL 3350 17 GM PACKET PO SCH (07:58)
[2021-12-05] MEDS: MULTIVITAMINS WITH MINERALS, THERAPEUTIC TABLET PO SCH (07:58)
[2021-12-05] MEDS: 0.9% SODIUM CHLORIDE 10 ML SYRINGE IVP SCH ×3 (07:58→23:14)
[2021-12-05] MEDS: DOCUSATE SODIUM 250 MG CAPSULE PO SCH ×2 (07:58→20:59)
[2021-12-05] MEDS: TICAGRELOR 90 MG TABLET PO SCH ×2 (07:58→20:59)
[2021-12-05] MEDS: CHOLECALCIFEROL (VIT D3) 5,000 [125 MCG] UNITS CAPSULE PO SCH (07:58)
[2021-12-05] MEDS: ETHYL ALCOHOL 62% ANTISEPTIC NASAL INHALANT 0.6 ML AMPUL NASAL SCH ×2 (07:58→20:58)
[2021-12-05] MEDS: CHLORHEXIDINE GLUCONATE 0.12% 15 ML UDCUP ORAL RINSE PO SCH ×2 (07:59→20:59)
[2021-12-05 08:15] VITALS: BP 126/82
[2021-12-05] MEDS: WATER IV SCH (15:32)
[2021-12-05] MEDS: ANIDULAFUNGIN IV SCH (15:32)
[2021-12-05] MEDS: DEXTROSE 5% IV SCH (15:32)
[2021-12-05 16:05] VITALS: BP 121/79
[2021-12-05] MEDS: SENNA 187 MG TABLET PO SCH (20:59)
[2021-12-05] MEDS: ROSUVASTATIN CALCIUM 20 MG TABLET PO SCH (20:59)
[2021-12-05] MEDS: HYDROCODONE/CHLORPHEN POLIS 10-8 MG/5 ML ORAL.SYG PO SCH (23:13)
[2021-12-06 01:32] VITALS: BP 124/77
[2021-12-06 06:15] VITALS: BP 123/79
[2021-12-06] MEDS: PANTOPRAZOLE SODIUM 40 MG DR TABLET PO SCH (06:15)
[2021-12-06] MEDS: METOPROLOL TARTRATE 25 MG TABLET PO SCH ×4 (06:15→23:25)
[2021-12-06] MEDS: ETHYL ALCOHOL 62% ANTISEPTIC NASAL INHALANT 0.6 ML AMPUL NASAL SCH ×2 (08:17→21:44)
[2021-12-06] MEDS: DOCUSATE SODIUM 250 MG CAPSULE PO SCH ×2 (08:17→21:44)
[2021-12-06] MEDS: OXYGEN THERAPY IH SCH ×2 (08:17→21:45)
[2021-12-06] MEDS: MULTIVITAMINS WITH MINERALS, THERAPEUTIC TABLET PO SCH (08:17)
[2021-12-06] MEDS: TICAGRELOR 90 MG TABLET PO SCH ×2 (08:18→21:44)
[2021-12-06] MEDS: APIXABAN 5 MG TABLET PO SCH ×2 (08:18→21:44)
[2021-12-06] MEDS: CHOLECALCIFEROL (VIT D3) 5,000 [125 MCG] UNITS CAPSULE PO SCH (08:18)
[2021-12-06] MEDS: MAGNESIUM HYDROXIDE SUSPENSION 30 ML UDCUP PO SCH (08:18)
[2021-12-06] MEDS: CHLORHEXIDINE GLUCONATE 0.12% 15 ML UDCUP ORAL RINSE PO SCH ×2 (08:18→21:44)
[2021-12-06] MEDS: 0.9% SODIUM CHLORIDE 10 ML SYRINGE IVP SCH ×3 (08:23→23:14)
[2021-12-06 09:05] VITALS: BP 118/78
[2021-12-06] MEDS: WATER IV SCH (16:12)
[2021-12-06] MEDS: ANIDULAFUNGIN IV SCH (16:12)
[2021-12-06] MEDS: DEXTROSE 5% IV SCH (16:12)
[2021-12-06 16:30] VITALS: BP 113/78
[2021-12-06 18:57] VITALS: BP 126/78
[2021-12-06] MEDS: ROSUVASTATIN CALCIUM 20 MG TABLET PO SCH (21:44)
[2021-12-06] MEDS: SENNA 187 MG TABLET PO SCH (21:44)
[2021-12-06] MEDS: HYDROCODONE/CHLORPHEN POLIS 10-8 MG/5 ML ORAL.SYG PO SCH (22:45)
[2021-12-07] VITALS: BP 131/87
[2021-12-07 05:30] VITALS: BP 113/71
[2021-12-07] MEDS: METOPROLOL TARTRATE 25 MG TABLET PO SCH ×4 (05:39→23:00)
[2021-12-07] MEDS: PANTOPRAZOLE SODIUM 40 MG DR TABLET PO SCH (05:39)
[2021-12-07] MEDS: OXYGEN THERAPY IH SCH ×2 (08:45→21:19)
[2021-12-07] MEDS: 0.9% SODIUM CHLORIDE 10 ML SYRINGE IVP SCH ×3 (08:45→23:00)
[2021-12-07] MEDS: TICAGRELOR 90 MG TABLET PO SCH ×2 (08:46→21:19)
[2021-12-07] MEDS: CHLORHEXIDINE GLUCONATE 0.12% 15 ML UDCUP ORAL RINSE PO SCH ×2 (08:46→21:19)
[2021-12-07] MEDS: DOCUSATE SODIUM 250 MG CAPSULE PO SCH ×2 (08:46→21:19)
[2021-12-07] MEDS: APIXABAN 5 MG TABLET PO SCH ×2 (08:46→21:19)
[2021-12-07] MEDS: ETHYL ALCOHOL 62% ANTISEPTIC NASAL INHALANT 0.6 ML AMPUL NASAL SCH ×2 (08:46→21:24)
[2021-12-07] MEDS: MULTIVITAMINS WITH MINERALS, THERAPEUTIC TABLET PO SCH (08:46)
[2021-12-07] MEDS: CHOLECALCIFEROL (VIT D3) 5,000 [125 MCG] UNITS CAPSULE PO SCH (08:46)
[2021-12-07 10:06] VITALS: BP 119/78
[2021-12-07] MEDS ORDERED: SODIUM CHLORIDE 0.9% 100 ML ONE (16:48)
[2021-12-07] MEDS: GuaiFENesin/CODEINE [SUGAR FREE] 200-20MG/10 ML SYRUP UDCUP PO PRN (16:55)
[2021-12-07] MEDS: ANIDULAFUNGIN IV SCH (16:55)
[2021-12-07] MEDS: WATER IV SCH (16:55)
[2021-12-07] MEDS: DEXTROSE 5% IV SCH (16:55)
[2021-12-07 17:27] VITALS: BP 106/68
[2021-12-07] MEDS: ROSUVASTATIN CALCIUM 20 MG TABLET PO SCH (21:19)
[2021-12-07] MEDS: SENNA 187 MG TABLET PO SCH (21:19)
[2021-12-08] MEDS: HYDROCODONE/CHLORPHEN POLIS 10-8 MG/5 ML ORAL.SYG PO SCH ×2 (00:34→22:08)
[2021-12-08 01:56] VITALS: BP 127/80
[2021-12-08] MEDS: PANTOPRAZOLE SODIUM 40 MG DR TABLET PO SCH (06:29)
[2021-12-08] MEDS: METOPROLOL TARTRATE 25 MG TABLET PO SCH ×4 (06:29→23:24)
[2021-12-08 06:31] VITALS: BP 112/71
[2021-12-08] MEDS: OXYGEN THERAPY IH SCH ×2 (08:53→20:51)
[2021-12-08] MEDS: 0.9% SODIUM CHLORIDE 10 ML SYRINGE IVP SCH ×3 (08:53→23:20)
[2021-12-08] MEDS: MAGNESIUM HYDROXIDE SUSPENSION 30 ML UDCUP PO SCH (08:53)
[2021-12-08] MEDS: CHOLECALCIFEROL (VIT D3) 5,000 [125 MCG] UNITS CAPSULE PO SCH (08:53)
[2021-12-08] MEDS: CHLORHEXIDINE GLUCONATE 0.12% 15 ML UDCUP ORAL RINSE PO SCH ×2 (08:53→20:50)
[2021-12-08] MEDS: APIXABAN 5 MG TABLET PO SCH ×2 (08:54→20:50)
[2021-12-08] MEDS: DOCUSATE SODIUM 250 MG CAPSULE PO SCH ×2 (08:54→20:50)
[2021-12-08] MEDS: TICAGRELOR 90 MG TABLET PO SCH ×2 (08:54→20:49)
[2021-12-08] MEDS: MULTIVITAMINS WITH MINERALS, THERAPEUTIC TABLET PO SCH (08:54)
[2021-12-08] MEDS: ETHYL ALCOHOL 62% ANTISEPTIC NASAL INHALANT 0.6 ML AMPUL NASAL SCH ×2 (08:55→20:50)
[2021-12-08 09:41] VITALS: BP 112/71
[2021-12-08] MEDS: GuaiFENesin SR 600 MG ER TABLET PO SCH ×3 (12:22→20:49)
[2021-12-08] MEDS: DEXTROSE 5% IV SCH (16:01)
[2021-12-08] MEDS: ANIDULAFUNGIN IV SCH (16:01)
[2021-12-08] MEDS: WATER IV SCH (16:01)
[2021-12-08 16:02] VITALS: BP 120/75
[2021-12-08 18:45] VITALS: BP 130/76
[2021-12-08] MEDS: ROSUVASTATIN CALCIUM 20 MG TABLET PO SCH (20:50)
[2021-12-08] MEDS: SENNA 187 MG TABLET PO SCH (20:50)
[2021-12-09] VITALS: BP 136/81
[2021-12-09] MEDS: PANTOPRAZOLE SODIUM 40 MG DR TABLET PO SCH (05:55)
[2021-12-09] MEDS: METOPROLOL TARTRATE 25 MG TABLET PO SCH ×4 (05:55→23:21)
[2021-12-09 06:00] VITALS: BP 118/62
[2021-12-09] MEDS: OXYGEN THERAPY IH SCH ×2 (08:24→20:00)
[2021-12-09] MEDS: 0.9% SODIUM CHLORIDE 10 ML SYRINGE IVP SCH ×3 (08:25→23:20)
[2021-12-09] MEDS: DOCUSATE SODIUM 250 MG CAPSULE PO SCH ×2 (08:26→20:01)
[2021-12-09] MEDS: CHOLECALCIFEROL (VIT D3) 5,000 [125 MCG] UNITS CAPSULE PO SCH (08:26)
[2021-12-09] MEDS: GuaiFENesin SR 600 MG ER TABLET PO SCH ×4 (08:26→20:01)
[2021-12-09] MEDS: TICAGRELOR 90 MG TABLET PO SCH ×2 (08:26→20:01)
[2021-12-09] MEDS: APIXABAN 5 MG TABLET PO SCH ×2 (08:26→20:01)
[2021-12-09] MEDS: MULTIVITAMINS WITH MINERALS, THERAPEUTIC TABLET PO SCH (08:26)
[2021-12-09] MEDS: ETHYL ALCOHOL 62% ANTISEPTIC NASAL INHALANT 0.6 ML AMPUL NASAL SCH ×2 (08:26→20:00)
[2021-12-09] MEDS: CHLORHEXIDINE GLUCONATE 0.12% 15 ML UDCUP ORAL RINSE PO SCH ×2 (08:27→20:01)
[2021-12-09 08:58] VITALS: BP 115/99
[2021-12-09] MEDS: WATER IV SCH (15:30)
[2021-12-09] MEDS: ANIDULAFUNGIN IV SCH (15:30)
[2021-12-09] MEDS: DEXTROSE 5% IV SCH (15:30)
[2021-12-09 16:21] VITALS: BP 117/68
[2021-12-09 18:44] VITALS: BP 121/85
[2021-12-09] MEDS: ROSUVASTATIN CALCIUM 20 MG TABLET PO SCH (20:01)
[2021-12-09] MEDS: SENNA 187 MG TABLET PO SCH (20:01)
[2021-12-09] MEDS: HYDROCODONE/CHLORPHEN POLIS 10-8 MG/5 ML ORAL.SYG PO SCH (22:37)
[2021-12-09 23:21] VITALS: BP 119/84
[2021-12-10] MEDS: PANTOPRAZOLE SODIUM 40 MG DR TABLET PO SCH (05:57)
[2021-12-10] MEDS: METOPROLOL TARTRATE 25 MG TABLET PO SCH ×4 (05:57→23:00)
[2021-12-10 06:15] VITALS: BP 115/74
[2021-12-10] MEDS: OXYGEN THERAPY IH SCH ×2 (08:05→20:38)
[2021-12-10] MEDS: ETHYL ALCOHOL 62% ANTISEPTIC NASAL INHALANT 0.6 ML AMPUL NASAL SCH ×2 (08:06→20:37)
[2021-12-10] MEDS: CHLORHEXIDINE GLUCONATE 0.12% 15 ML UDCUP ORAL RINSE PO SCH ×2 (08:06→20:36)
[2021-12-10] MEDS: MAGNESIUM HYDROXIDE SUSPENSION 30 ML UDCUP PO SCH ×2 (08:06→09:00)
[2021-12-10] MEDS: 0.9% SODIUM CHLORIDE 10 ML SYRINGE IVP SCH ×3 (08:06→23:00)
[2021-12-10] MEDS: DOCUSATE SODIUM 250 MG CAPSULE PO SCH ×2 (08:06→20:36)
[2021-12-10] MEDS: MULTIVITAMINS WITH MINERALS, THERAPEUTIC TABLET PO SCH (08:06)
[2021-12-10] MEDS: TICAGRELOR 90 MG TABLET PO SCH ×2 (08:07→20:37)
[2021-12-10] MEDS: APIXABAN 5 MG TABLET PO SCH ×2 (08:07→20:37)
[2021-12-10] MEDS: CHOLECALCIFEROL (VIT D3) 5,000 [125 MCG] UNITS CAPSULE PO SCH (08:07)
[2021-12-10] MEDS: GuaiFENesin SR 600 MG ER TABLET PO SCH ×4 (08:07→20:37)
[2021-12-10 10:00] VITALS: BP 121/80
[2021-12-10] MEDS: WATER IV SCH (15:28)
[2021-12-10] MEDS: ANIDULAFUNGIN IV SCH (15:28)
[2021-12-10] MEDS: DEXTROSE 5% IV SCH (15:28)
[2021-12-10 16:42] VITALS: BP 126/78
[2021-12-10] MEDS ORDERED: SODIUM CHLORIDE 0.9% 250 ML IV ONE (17:57)
[2021-12-10] MEDS: SENNA 187 MG TABLET PO SCH (20:36)
[2021-12-10] MEDS: ROSUVASTATIN CALCIUM 20 MG TABLET PO SCH (20:36)
[2021-12-10] MEDS: HYDROCODONE/CHLORPHEN POLIS 10-8 MG/5 ML ORAL.SYG PO SCH (21:00)
[2021-12-10] MEDS ORDERED: MELATONIN 5 MG TABLET PO ONE (22:45)
[2021-12-10 23:00] VITALS: BP 125/76
[2021-12-11] MEDS: GuaiFENesin/CODEINE [SUGAR FREE] 200-20MG/10 ML SYRUP UDCUP PO PRN (02:36)
[2021-12-11] MEDS: PANTOPRAZOLE SODIUM 40 MG DR TABLET PO SCH (05:59)
[2021-12-11] MEDS: METOPROLOL TARTRATE 25 MG TABLET PO SCH ×4 (05:59→23:08)
[2021-12-11 06:00] VITALS: BP 122/68
[2021-12-11 07:18] VITALS: BP 122/71
[2021-12-11 07:27] LABS: BASOPHILS % (AUTO) 2.1 % (0.0-2.0); EOSINOPHILS % (AUTO) 8.2 % (1.0-6.0); HEMATOCRIT 34.7 % (41-53); HEMOGLOBIN 11.6 g/dL (13.5-17.5); LYMPHOCYTES # (AUTO) 1.9 K/uL (1.0-4.8); LYMPHOCYTES % (AUTO) 32.5 % (22.0-44.0); MEAN CORPUSCULAR HEMOGLOBIN 28.6 pg (26.0-34.0); MEAN CORPUSCULAR HGB CONC 33.5 G/dL (31.0-37.0); MEAN CORPUSCULAR VOLUME 85 fL (80-100); MONOCYTES # (AUTO) 0.7 K/uL (0.1-1.0); MONOCYTES % (AUTO) 11.5 % (2.0-9.0); NEUTROPHILS # (AUTO) 2.6 K/uL (1.8-7.7); NEUTROPHILS % (AUTO) 45.7 % (40.0-70.0); PLATELET COUNT (AUTO) 322 K/uL (150-450); RED BLOOD CELL COUNT(AUTO) 4.07 MIL/uL (4.50-5.90); RED CELL DISTRIBUTION WIDTH 14.9 % (11.5-14.5)
[2021-12-11 07:42] LABS: ALANINE AMINOTRANSFERASE 41 U/L (12-78); ALBUMIN 3.5 g/dL (3.4-5.0); ALKALINE PHOSPHATASE 65 U/L (46-116); ANION GAP 4 mmol/L (8-16); ASPARTATE AMINOTRANSFERASE 25 U/L (15-37); BILIRUBIN,TOTAL 0.3 mg/dL (0.1-1.0); CALCIUM, TOTAL 9.5 mg/dL (8.8-10.5); CARBON DIOXIDE 33 mmol/L (22-29); CHLORIDE 103 mmol/L (98-107); CREATININE 0.73 mg/dL (0.60-1.30); GLOMERULAR FILTR. RATE CALC > 60 mL/min (>60); GLUCOSE,RANDOM 100 mg/dL (70-110); SODIUM SERUM 140 mmol/L (136-145); TOTAL PROTEIN, SERUM 7.1 g/dL (6.4-8.2); UREA NITROGEN, BLOOD 13 mg/dL (7-18)
[2021-12-11] MEDS: OXYGEN THERAPY IH SCH ×2 (08:17→20:04)
[2021-12-11] MEDS: 0.9% SODIUM CHLORIDE 10 ML SYRINGE IVP SCH ×3 (08:17→23:08)
[2021-12-11] MEDS: CHOLECALCIFEROL (VIT D3) 5,000 [125 MCG] UNITS CAPSULE PO SCH (08:18)
[2021-12-11] MEDS: ETHYL ALCOHOL 62% ANTISEPTIC NASAL INHALANT 0.6 ML AMPUL NASAL SCH ×2 (08:18→20:04)
[2021-12-11] MEDS: DOCUSATE SODIUM 250 MG CAPSULE PO SCH ×2 (08:18→20:04)
[2021-12-11] MEDS: MULTIVITAMINS WITH MINERALS, THERAPEUTIC TABLET PO SCH (08:18)
[2021-12-11] MEDS: APIXABAN 5 MG TABLET PO SCH ×2 (08:18→20:04)
[2021-12-11] MEDS: TICAGRELOR 90 MG TABLET PO SCH ×2 (08:18→20:04)
[2021-12-11] MEDS: CHLORHEXIDINE GLUCONATE 0.12% 15 ML UDCUP ORAL RINSE PO SCH ×2 (08:18→20:04)
[2021-12-11] MEDS: GuaiFENesin SR 600 MG ER TABLET PO SCH ×4 (08:19→20:04)
[2021-12-11 11:20] VITALS: BP 120/75
[2021-12-11] MEDS: ANIDULAFUNGIN IV SCH (16:10)
[2021-12-11] MEDS: WATER IV SCH (16:10)
[2021-12-11] MEDS: DEXTROSE 5% IV SCH (16:10)
[2021-12-11 16:30] VITALS: BP 118/75
[2021-12-11 17:30] VITALS: BP 127/71
[2021-12-11] MEDS: ROSUVASTATIN CALCIUM 20 MG TABLET PO SCH (20:04)
[2021-12-11] MEDS: SENNA 187 MG TABLET PO SCH (20:10)
[2021-12-11] MEDS: HYDROCODONE/CHLORPHEN POLIS 10-8 MG/5 ML ORAL.SYG PO SCH (22:30)
[2021-12-11 23:08] VITALS: BP 137/83
[2021-12-12 05:22] VITALS: BP 118/62
[2021-12-12] MEDS: METOPROLOL TARTRATE 25 MG TABLET PO SCH ×4 (05:22→23:16)
[2021-12-12] MEDS: PANTOPRAZOLE SODIUM 40 MG DR TABLET PO SCH (05:22)
[2021-12-12] MEDS: OXYGEN THERAPY IH SCH ×2 (08:07→20:08)
[2021-12-12] MEDS: ETHYL ALCOHOL 62% ANTISEPTIC NASAL INHALANT 0.6 ML AMPUL NASAL SCH ×2 (08:07→20:09)
[2021-12-12] MEDS: CHOLECALCIFEROL (VIT D3) 5,000 [125 MCG] UNITS CAPSULE PO SCH (08:08)
[2021-12-12] MEDS: MULTIVITAMINS WITH MINERALS, THERAPEUTIC TABLET PO SCH (08:08)
[2021-12-12] MEDS: GuaiFENesin SR 600 MG ER TABLET PO SCH ×4 (08:08→20:10)
[2021-12-12] MEDS: APIXABAN 5 MG TABLET PO SCH ×2 (08:08→20:10)
[2021-12-12] MEDS: TICAGRELOR 90 MG TABLET PO SCH ×2 (08:08→20:09)
[2021-12-12] MEDS: DOCUSATE SODIUM 250 MG CAPSULE PO SCH ×2 (08:08→20:09)
[2021-12-12] MEDS: CHLORHEXIDINE GLUCONATE 0.12% 15 ML UDCUP ORAL RINSE PO SCH ×2 (08:09→20:11)
[2021-12-12] MEDS: MAGNESIUM HYDROXIDE SUSPENSION 30 ML UDCUP PO SCH (08:09)
[2021-12-12] MEDS: 0.9% SODIUM CHLORIDE 10 ML SYRINGE IVP SCH ×3 (08:14→23:16)
[2021-12-12 09:11] VITALS: BP 117/78
[2021-12-12] MEDS: DEXTROSE 5% IV SCH (16:06)
[2021-12-12] MEDS: WATER IV SCH (16:06)
[2021-12-12] MEDS: ANIDULAFUNGIN IV SCH (16:06)
[2021-12-12 17:11] VITALS: BP 131/73
[2021-12-12 18:00] VITALS: BP 132/81
[2021-12-12] MEDS: ROSUVASTATIN CALCIUM 20 MG TABLET PO SCH (20:10)
[2021-12-12] MEDS: SENNA 187 MG TABLET PO SCH (20:11)
[2021-12-12] MEDS: HYDROCODONE/CHLORPHEN POLIS 10-8 MG/5 ML ORAL.SYG PO SCH ×2 (20:12→22:30)
[2021-12-13] VITALS: BP 127/80
[2021-12-13 06:10] VITALS: BP 114/68
[2021-12-13] MEDS: METOPROLOL TARTRATE 25 MG TABLET PO SCH ×4 (06:16→23:09)
[2021-12-13] MEDS: PANTOPRAZOLE SODIUM 40 MG DR TABLET PO SCH (06:16)
[2021-12-13] MEDS: MULTIVITAMINS WITH MINERALS, THERAPEUTIC TABLET PO SCH (07:44)
[2021-12-13] MEDS: 0.9% SODIUM CHLORIDE 10 ML SYRINGE IVP SCH ×3 (07:44→23:09)
[2021-12-13] MEDS: DOCUSATE SODIUM 250 MG CAPSULE PO SCH ×2 (07:45→20:40)
[2021-12-13] MEDS: GuaiFENesin SR 600 MG ER TABLET PO SCH ×4 (07:45→20:38)
[2021-12-13] MEDS: APIXABAN 5 MG TABLET PO SCH ×2 (07:45→20:40)
[2021-12-13] MEDS: CHLORHEXIDINE GLUCONATE 0.12% 15 ML UDCUP ORAL RINSE PO SCH ×2 (07:45→20:38)
[2021-12-13] MEDS: TICAGRELOR 90 MG TABLET PO SCH ×2 (07:45→20:38)
[2021-12-13] MEDS: CHOLECALCIFEROL (VIT D3) 5,000 [125 MCG] UNITS CAPSULE PO SCH (07:45)
[2021-12-13] MEDS: OXYGEN THERAPY IH SCH ×2 (07:47→20:38)
[2021-12-13] MEDS: ETHYL ALCOHOL 62% ANTISEPTIC NASAL INHALANT 0.6 ML AMPUL NASAL SCH ×2 (07:52→20:40)
[2021-12-13 08:56] VITALS: BP 122/72
[2021-12-13 15:33] VITALS: BP 121/71
[2021-12-13] MEDS: DEXTROSE 5% IV SCH (17:21)
[2021-12-13] MEDS: WATER IV SCH (17:21)
[2021-12-13] MEDS: ANIDULAFUNGIN IV SCH (17:21)
[2021-12-13 17:35] VITALS: BP 125/80
[2021-12-13] MEDS: ROSUVASTATIN CALCIUM 20 MG TABLET PO SCH (20:38)
[2021-12-13] MEDS: SENNA 187 MG TABLET PO SCH (20:40)
[2021-12-13] MEDS: HYDROCODONE/CHLORPHEN POLIS 10-8 MG/5 ML ORAL.SYG PO SCH (22:27)
[2021-12-13 23:09] VITALS: BP 131/74
[2021-12-14] MEDS: METOPROLOL TARTRATE 25 MG TABLET PO SCH ×4 (05:55→23:17)
[2021-12-14] MEDS: PANTOPRAZOLE SODIUM 40 MG DR TABLET PO SCH (05:55)
[2021-12-14 06:19] VITALS: BP 120/72
[2021-12-14 08:05] VITALS: BP 115/83
[2021-12-14] MEDS: CHOLECALCIFEROL (VIT D3) 5,000 [125 MCG] UNITS CAPSULE PO SCH (08:20)
[2021-12-14] MEDS: CHLORHEXIDINE GLUCONATE 0.12% 15 ML UDCUP ORAL RINSE PO SCH ×2 (08:20→20:41)
[2021-12-14] MEDS: OXYGEN THERAPY IH SCH ×2 (08:20→20:42)
[2021-12-14] MEDS: ETHYL ALCOHOL 62% ANTISEPTIC NASAL INHALANT 0.6 ML AMPUL NASAL SCH ×2 (08:21→20:41)
[2021-12-14] MEDS: DOCUSATE SODIUM 250 MG CAPSULE PO SCH ×2 (08:21→20:42)
[2021-12-14] MEDS: MULTIVITAMINS WITH MINERALS, THERAPEUTIC TABLET PO SCH (08:21)
[2021-12-14] MEDS: MAGNESIUM HYDROXIDE SUSPENSION 30 ML UDCUP PO SCH ×2 (08:21→08:28)
[2021-12-14] MEDS: APIXABAN 5 MG TABLET PO SCH ×2 (08:21→20:41)
[2021-12-14] MEDS: GuaiFENesin SR 600 MG ER TABLET PO SCH ×4 (08:21→20:42)
[2021-12-14] MEDS: TICAGRELOR 90 MG TABLET PO SCH ×2 (08:21→20:41)
[2021-12-14] MEDS: 0.9% SODIUM CHLORIDE 10 ML SYRINGE IVP SCH ×3 (08:25→23:17)
[2021-12-14 12:30] VITALS: BP 114/73
[2021-12-14 16:26] VITALS: BP 108/73
[2021-12-14 17:10] VITALS: BP 121/76
[2021-12-14] MEDS: ANIDULAFUNGIN IV SCH (17:13)
[2021-12-14] MEDS: DEXTROSE 5% IV SCH (17:13)
[2021-12-14] MEDS: WATER IV SCH (17:13)
[2021-12-14] MEDS: ROSUVASTATIN CALCIUM 20 MG TABLET PO SCH (20:41)
[2021-12-14] MEDS: SENNA 187 MG TABLET PO SCH (20:42)
[2021-12-14] MEDS: HYDROCODONE/CHLORPHEN POLIS 10-8 MG/5 ML ORAL.SYG PO SCH (22:34)
[2021-12-14 23:01] VITALS: BP 142/82
[2021-12-15] MEDS: METOPROLOL TARTRATE 25 MG TABLET PO SCH ×4 (06:03→23:22)
[2021-12-15] MEDS: PANTOPRAZOLE SODIUM 40 MG DR TABLET PO SCH (06:03)
[2021-12-15 06:10] VITALS: BP 118/75
[2021-12-15] MEDS: OXYGEN THERAPY IH SCH ×2 (08:06→20:16)
[2021-12-15] MEDS: 0.9% SODIUM CHLORIDE 10 ML SYRINGE IVP SCH ×3 (08:07→23:22)
[2021-12-15] MEDS: TICAGRELOR 90 MG TABLET PO SCH ×2 (08:07→20:17)
[2021-12-15] MEDS: CHLORHEXIDINE GLUCONATE 0.12% 15 ML UDCUP ORAL RINSE PO SCH ×2 (08:07→20:18)
[2021-12-15] MEDS: APIXABAN 5 MG TABLET PO SCH ×2 (08:07→20:17)
[2021-12-15] MEDS: MULTIVITAMINS WITH MINERALS, THERAPEUTIC TABLET PO SCH (08:07)
[2021-12-15] MEDS: DOCUSATE SODIUM 250 MG CAPSULE PO SCH ×2 (08:07→20:17)
[2021-12-15] MEDS: ETHYL ALCOHOL 62% ANTISEPTIC NASAL INHALANT 0.6 ML AMPUL NASAL SCH ×2 (08:07→20:17)
[2021-12-15] MEDS: CHOLECALCIFEROL (VIT D3) 5,000 [125 MCG] UNITS CAPSULE PO SCH (08:07)
[2021-12-15] MEDS: GuaiFENesin SR 600 MG ER TABLET PO SCH ×4 (08:08→20:17)
[2021-12-15 10:00] VITALS: BP 111/65
[2021-12-15] MEDS ORDERED: APIX5TAB PO (10:20)
[2021-12-15] MEDS ORDERED: HYDR473S62 PO ×3 (10:20→12:10)
[2021-12-15] MEDS ORDERED: DOCU250C14 PO (10:20)
[2021-12-15] MEDS ORDERED: CHOL500013 PO (10:20)
[2021-12-15] MEDS: DEXTROSE 5% IV SCH (16:16)
[2021-12-15] MEDS: WATER IV SCH (16:16)
[2021-12-15] MEDS: ANIDULAFUNGIN IV SCH (16:16)
[2021-12-15 16:26] VITALS: BP 131/80
[2021-12-15] MEDS: ROSUVASTATIN CALCIUM 20 MG TABLET PO SCH (20:17)
[2021-12-15] MEDS: SENNA 187 MG TABLET PO SCH (20:17)
[2021-12-15] MEDS: HYDROCODONE/CHLORPHEN POLIS 10-8 MG/5 ML ORAL.SYG PO SCH (22:31)
[2021-12-15 23:32] VITALS: BP 127/81
[2021-12-16] MEDS: PANTOPRAZOLE SODIUM 40 MG DR TABLET PO SCH (05:50)
[2021-12-16] MEDS: METOPROLOL TARTRATE 25 MG TABLET PO SCH ×4 (05:50→23:29)
[2021-12-16 06:00] VITALS: BP 118/65
[2021-12-16] MEDS: MULTIVITAMINS WITH MINERALS, THERAPEUTIC TABLET PO SCH (08:31)
[2021-12-16] MEDS: APIXABAN 5 MG TABLET PO SCH ×2 (08:31→21:02)
[2021-12-16] MEDS: CHOLECALCIFEROL (VIT D3) 5,000 [125 MCG] UNITS CAPSULE PO SCH (08:31)
[2021-12-16] MEDS: CHLORHEXIDINE GLUCONATE 0.12% 15 ML UDCUP ORAL RINSE PO SCH ×2 (08:31→21:02)
[2021-12-16] MEDS: DOCUSATE SODIUM 250 MG CAPSULE PO SCH ×2 (08:31→21:02)
[2021-12-16] MEDS: OXYGEN THERAPY IH SCH ×2 (08:31→21:02)
[2021-12-16] MEDS: 0.9% SODIUM CHLORIDE 10 ML SYRINGE IVP SCH ×2 (08:32→16:08)
[2021-12-16] MEDS: GuaiFENesin SR 600 MG ER TABLET PO SCH ×4 (08:32→21:02)
[2021-12-16] MEDS: ETHYL ALCOHOL 62% ANTISEPTIC NASAL INHALANT 0.6 ML AMPUL NASAL SCH ×2 (08:32→21:02)
[2021-12-16] MEDS: TICAGRELOR 90 MG TABLET PO SCH ×2 (08:32→21:02)
[2021-12-16] MEDS: MAGNESIUM HYDROXIDE SUSPENSION 30 ML UDCUP PO SCH (08:32)
[2021-12-16] MEDS ORDERED: HYDR473S62 PO (09:34)
[2021-12-16] MEDS ORDERED: SENN8.8S18 PO (09:43)
[2021-12-16] MEDS ORDERED: PANT-31 PO (09:43)
[2021-12-16] MEDS ORDERED: TICA90TA PO (09:43)
[2021-12-16] MEDS ORDERED: ROSU20TA73 PO (09:43)
[2021-12-16 10:06] VITALS: BP 127/71
[2021-12-16] MEDS: WATER IV SCH (16:08)
[2021-12-16] MEDS: DEXTROSE 5% IV SCH (16:08)
[2021-12-16] MEDS: ANIDULAFUNGIN IV SCH (16:08)
[2021-12-16 16:23] VITALS: BP 116/78
[2021-12-16 17:57] VITALS: BP 137/70
[2021-12-16] MEDS: ROSUVASTATIN CALCIUM 20 MG TABLET PO SCH (21:02)
[2021-12-16] MEDS: SENNA 187 MG TABLET PO SCH (21:02)
[2021-12-16] MEDS: HYDROCODONE/CHLORPHEN POLIS 10-8 MG/5 ML ORAL.SYG PO SCH (22:23)
[2021-12-17] VITALS: BP 130/79
[2021-12-17] MEDS: METOPROLOL TARTRATE 25 MG TABLET PO SCH (05:50)
[2021-12-17] MEDS: PANTOPRAZOLE SODIUM 40 MG DR TABLET PO SCH (05:50)
[2021-12-17 05:52] VITALS: BP 112/71
[2021-12-17 08:05] VITALS: BP 116/73
[2021-12-17] MEDS: CHLORHEXIDINE GLUCONATE 0.12% 15 ML UDCUP ORAL RINSE PO SCH (08:52)
[2021-12-17] MEDS: OXYGEN THERAPY IH SCH (08:52)
[2021-12-17] MEDS: ETHYL ALCOHOL 62% ANTISEPTIC NASAL INHALANT 0.6 ML AMPUL NASAL SCH (08:53)
[2021-12-17] MEDS: CHOLECALCIFEROL (VIT D3) 5,000 [125 MCG] UNITS CAPSULE PO SCH (08:53)
[2021-12-17] MEDS: DOCUSATE SODIUM 250 MG CAPSULE PO SCH (08:53)
[2021-12-17] MEDS: TICAGRELOR 90 MG TABLET PO SCH (08:53)
[2021-12-17] MEDS: GuaiFENesin SR 600 MG ER TABLET PO SCH (08:53)
[2021-12-17] MEDS: APIXABAN 5 MG TABLET PO SCH (08:53)
[2021-12-17] MEDS: MULTIVITAMINS WITH MINERALS, THERAPEUTIC TABLET PO SCH (08:53)
== END 2021-12-17 11:00 | disposition home or self-care (01) | DRG 74 ==
LOC: 2WR 15:35
PROVIDERS: ADMIT Physical Medicine & Rehabilitation; ATTEND Physical Medicine & Rehabilitation
DX: G62.9 Polyneuropathy, unspecified (principal); R53.81 Other malaise; Z20.822 Contact with and (suspected) exposure to COVID-19; I10 Essential (primary) hypertension; K21.9 Gastro-esophageal reflux disease without esophagitis; K59.00 Constipation, unspecified; G72.9 Myopathy, unspecified; I25.2 Old myocardial infarction; Z78.9 Other specified health status; Z79.01 Long term (current) use of anticoagulants; Z86.16 Personal history of COVID-19; Z87.01 Personal history of pneumonia (recurrent); Z87.891 Personal history of nicotine dependence; Z93.1 Gastrostomy status; Z98.61 Coronary angioplasty status; Z99.81 Dependence on supplemental oxygen
CPT/HCPCS: 80048; 80053; 85025; 87070; 87081; 92507; 92522; 97110; 97116; 97163; 97166; 97530; 97535; 99366; G0238; J0348; J7050; J7060; Q9967